=== PATIENT | male | born 2005 | race Caucasian/White ===

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

== ENCOUNTER 2024-04-07 12:01 | Emergency (ER) | payer SELFPAY ==
[2024-04-07 12:09] VITALS: BP 142/77; PULSE 94; RESP 28; TEMP 39.4; O2SAT 100
[2024-04-07 12:22] VITALS: TEMP 39.4
[2024-04-07] MEDS: IBUPROFEN 600 MG TABLET PO (12:22)
--- NOTE | 2024-04-07 12:56 | ED.GENADULT ---
HPI - General Adult General Chief complaint: Nausea/Vomiting/Diarrhea Stated complaint: nausea/diarrhea/headache Time Seen by Provider: 04/07/24 12:50 Source: patient, RN notes reviewed and old records reviewed Mode of arrival: ambulatory Limitations: no limitations History of Present Illness HPI narrative: 19 year old male who presents to [facility] care with complaints of fever,nausea with vomiting and diarrhea for past 3 days. Patient reports that he has not had any vomiting today did take medication for nausea. Patient reports fevers chill and body aches presents to clinic with 103F fever. Patient reports no abdominal pain, ear pain or sore throat or any acute cough or any nasal congestion.Patient was treated with Ibuprofen while in clinic for 103F temperature. MD complaint: fever, chills, nausea,vomiting and diarrhea Onset (ago): day(s) (3) Severity: moderate Treatments prior to arrival: other (Zofran) Related Data Home Medications ?Medication ?Instructions ?Recorded ?Confirmed ?Last Taken ?Type epinephrine 0.1 mg/0.1 mL subcut PRN Allergic Reaction 05/25/19 Unknown History injection, auto-injector Allergies Allergy/AdvReac Type Severity Reaction Status Date / Time amoxicillin Allergy Unknown Unknown Verified 04/07/24 12:18 bee venom protein (honey Allergy Anaphylactic Verified 04/07/24 12:13 bee) (bees) Shock Review of Systems Review of Systems: CONSTITUTIONAL: Reports fever, chills, or sweats. EYES: Denies visual changes, redness, or discharge. ENT: Denies rhinorrhea, congestion, sore throat, or otalgia. CARDIOVASCULAR: Denies chest pain, palpitations, or edema. RESPIRATORY: Denies cough or dyspnea. GASTROINTESTINAL: Denies abdominal pain, positive nausea, vomiting, and diarrhea. GENITOURINARY: Denies dysuria or hematuria. SKIN: Denies rash or itching. MUSCULOSKELETAL: Denies back pain, joint pain,positive for body aches NEUROLOGIC: Denies headache, numbness, or weakness. PSYCHIATRIC: Denies anxiety or depression. All systems reviewed & are unremarkable except as noted in HPI and below PMFSH Past Medical History Medical History (Updated 04/09/24 @ 12:29 by Kenyatta Fried NP) Strep pharyngitis Social History Social History (Updated 04/09/24 @ 12:30 by Kenyatta Fried NP) Smoking status: Current every day smoker Tobacco type: e-cigarettes/vaping Alcohol intake: current Alcohol use details: rare Substance use type: does not use Gender identity (if verbalized by the patient): Male Comments At time of signature, agree with nursing past medical, surgical, social and family history. There is no relevant family history pertinent to the presenting complaint Exam Narrative: GENERAL:ill-appearing, well-nourished, and in no acute distress. HEAD: Normocephalic, atraumatic. EYES: PERRLA and EOMI. ENT: Nares clear, no rhinorrhea or epistaxis. Mucous membranes moist.TM's normal with throat pink with no swelling NECK: Supple.no lymphadenopathy CHEST: Clear to auscultation. No respiratory distress.SAO2 100% on room air HEART: Regular rate and rhythm. No murmur heard. Normal peripheral pulses. ABDOMEN: Soft, nontender, no McBurney point tenderness,nondistended, normal active bowel sounds.positive for nausea vomiting and diarrhea EXTREMITIES: Normal range of motion. No edema. SKIN: Warm, dry, no rash. NEURO: No focal deficits. Alert and oriented x3. Course Course Emergency Course: Patient is aware of diagnosis, understands and agrees to treatment plan.? Anticipatory guidance given.? Patient agrees to follow-up as directed and is aware of reasons to seek care at the emergency department. Portions of this record may have been created with voice recognition software Level of Care: Express Care Visit Vital Signs Vital signs: Vital Signs Temperature 39.4 C H 04/07/24 12:09 Pulse Rate 94 04/07/24 12:09 Respiratory Rate 28 H 04/07/24 12:09 Blood Pressure 142/77 H 04/07/24 12:09 Pulse Oximetry 100 04/07/24 12:09 Oxygen Delivery Room Air 04/07/24 12:09 Temperature 39.1 C H 04/07/24 13:01 Pulse Rate 94 04/07/24 12:09 Respiratory Rate 28 H 04/07/24 12:09 Blood Pressure 142/77 H 04/07/24 12:09 Pulse Oximetry 100 04/07/24 12:09 Oxygen Delivery Room Air 04/07/24 12:09 Reviewed Medical Decision Making MDM Narrative Medical decision making narrative: Exam findings and imaging show no acute concerns or changes; patient is non-toxic appearing and is in no distress.? Patient is appropriate for outpatient treatment and follow-up Differential Diagnosis Differential Diagnosis: URI, viral syndrome Influenza, COVID, gastroenteritis Medical Records Medical records reviewed: Yes I reviewed the external patient's medical records. Vital Signs Vital Signs: Vital Signs Temperature 39.4 C H 04/07/24 12:09 Pulse Rate 94 04/07/24 12:09 Respiratory Rate 28 H 04/07/24 12:09 Blood Pressure 142/77 H 04/07/24 12:09 Pulse Oximetry 100 04/07/24 12:09 Oxygen Delivery Room Air 04/07/24 12:09 Temperature 39.1 C H 04/07/24 13:01 Pulse Rate 94 04/07/24 12:09 Respiratory Rate 28 H 04/07/24 12:09 Blood Pressure 142/77 H 04/07/24 12:09 Pulse Oximetry 100 04/07/24 12:09 Oxygen Delivery Room Air 04/07/24 12:09 reviewed Lab Data Lab results reviewed: Yes I reviewed the patient's lab results. Lab results narrative: Influenza A positive, Influenza B negative, COVID antigen negative Labs: Lab Results 04/07/24 Range/Units 12:14 POC Influenza A Ag Positive (Negative) POC Influenza B Ag Negative (Negative) POC SARS CoV-2 Ag Negative (Negative) reviewed Critical Care Time Critical Care Time Critical Care Time: No Discharge Plan Discharge Clinical Impression: Influenza A Patient Disposition: Home, Self-Care Condition: Stable Instructions: Antibiotic Form, Influenza (ED) Additional Instructions: Clear liquids for the next 8-10 hours, then advance to a bland diet as tolerated A bland diet can consist of--BRAT diet which is bananas, rice, applesauce, and toast Avoid fried, greasy, fatty, fried foods Avoid caffeine, nicotine, and alcohol Return to your regular diet in the next 3-4 days Medication as directed for nausea and vomiting Sometimes ibuprofen/Aleve can cause increased stomach upset please treat your fevers [id number] Imodium if develop diarrhea Follow-up with her PCP if continued problems or uncontrolled pain If your symptoms persist, change or worsen significantly before you can contact your personal physician then please, without delay, go to the emergency department for further evaluation. Follow-up with PCP in 7-10 days or sooner if needed Follow up with PCP soon in regards to your blood pressure which is elevated above threshold for referral. Blood pressure above 120/80 may indicate pre-hypertension. Patient Language: Faroese Prescriptions: No Action epinephrine 0.1 mg/0.1 mL Auto-Injector subcut PRN (Reason: Allergic Reaction) Follow-up/Referrals: PHYSICIAN,WAXER OPERATOR [Primary Care Provider] - Time of Disposition: 13:19 Quality [place] Coma Scale Eyes: Open Verbal: Oriented and Alert Motor: Follows Commands Drew Coma Total Score: 15
[2024-04-07 13:01] VITALS: TEMP 39.1
[2024-04-07 13:12] LABS: EDCOVIDSCREEN Negative (Negative); EDINFLUASCREEN Positive (Negative); EDINFLUBSCREEN Negative (Negative)
== END 2024-04-07 13:25 | disposition home or self-care (01) ==
PROVIDERS: Emergency Provider Registered Nurse
DX: J10.1 Influenza due to other identified influenza virus with other respiratory manifestations (principal); Z20.822 Contact with and (suspected) exposure to COVID-19; F17.290 Nicotine dependence, other tobacco product, uncomplicated
CPT/HCPCS: 87426; 87804; 99212; A9270; G0463

== ENCOUNTER 2025-03-07 17:33 | Emergency (ER) | payer BC, SELFPAY ==
--- OUTSIDE RECORDS SUMMARY | 2025-03-07 17:36 | XMS_ITS | Clinical Summary ---
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 Active Dexmethylphenida te HCl 20 MG CAPSULE SR 24 HR Take 20 mg by mouth daily. Active Encounters Date Type Department Care Team Description 12/13/2024 12:59 PM CDT - 12/13/2024 2:56 PM CDT Emergency [facility] [address] [place] [address] Anu Jones APRN, RANDY Laceration of finger Discharge Disposition: Discharged to home or Selfcare 12/13/2024 Travel from Last 3 Months Immunizations Immunization Administration Dates Next Due Td Vaccine (preservative free) 12/13/2024 Social History Tobacco Use Types Packs/Day Years Used Date Smoking Tobacco: Every Day Smokeless Tobacco: Never Comments:2/3 a day Sex and Gender Information Value Date Recorded Sex Assigned at Not on file Legal Sex Male 12:40 AM CDT Gender Identity Not on file Sexual Orientation Not on file Last Filed Vital Signs Vital Sign Reading Time Taken Comments Blood Pressure 137/73 12/13/2024 2:48 PM CDT Pulse 58 12/13/2024 2:48 PM CDT Temperature 36.8 C (98.2 F) 12/13/2024 12:57 PM CDT Respiratory Rate 16 12/13/2024 2:48 PM CDT Oxygen Saturation 100% 12/13/2024 2:48 PM CDT Inhaled Oxygen Concentration - - Weight 65.8 kg (145 lb) 12/13/2024 12:57 PM CDT Height 182.9 cm (6') 12/13/2024 12:57 PM CDT Body Mass Index 19.67 12/13/2024 12:57 PM CDT Plan of Treatment Health Maintenance Due Date Last Done Comments Hepatitis C Virus (HCV) Screening 2003 Meningococcal B Immunization (1 of 2 - Standard) 2019 Pneumococcal Immunization Combined (1 of 2 - PCV) 2022 01/17/2005, 2003, 2003, Additional history exists Influenza Immunization (#1) 12/12/202401/12, 05/25/2013, 02/03/2012, Additional history exists SARS-COV-2 Immunization ( season) 2024 Respiratory Syncytial Virus (RSV) Immunization (Adult) (1 - 1-dose 75+ series) 2078 Varicella Immunization Completed 01/17/2005, 2004 Hepatitis B Immunization Completed 005, 2003, 2003 Hepatitis A Immunization Discontinued 07/20/2006, 11/2004 Measles Mumps Rubella (MMR) Immunization Discontinued 12/14/2007, 01/17/2005 Polio (IPV) Immunization Discontinued 009, 2003, 2003, Additional history exists TdaP Immunization Completed 05/25/2013 Meningococcal Immunization (ACWY) Aged Out 09/26/2014 No longer eligible based on patient's age to complete this topic Human Papillomavirus (HPV) Immunization Completed 08/14/2016, 04/15/2016, 02/12/2016 DTaP/Tdap/Td Immunization Discontinued 2024, 05/25/2013, 11/22/2008, Additional history exists Rotavirus Immunization Aged Out No lo nger eligible based on patient's age to complete this topic Procedures Procedure Name Priority Date/Time Associated Diagnosis Comments LACERATION REPAIR Routine 12/13/2024 2:2 1 PM CDT LACERATION REPAIR Routine 12/13/2024 2:2 1 PM CDT from Last 3 Months Results * Laceration Repair (12/13/2024 2:21 PM CDT) Rashad Puente MD - 12/13/2024 2:21 PM CDT Rashad Hannon MD 12/13/2024 5:57 PM Laceration Repair Performed by: Anu Jones APRN, CNP Authorized by: Anu Jones APRN, CNP [place] protocol: Patient identity confirmed: Verbally with patient Anesthesia: Anesthesia method: None Laceration details: Location: Finger Finger location: R ring finger Length (cm): 0.3 Exploration: Hemostasis achieved with: Direct pressure Treatment: Area cleansed with: Shur-Clens Amount of cleaning: Standard Skin repair: Repair method: Tissue adhesive us Anu Jones APRN, CNP PROCEDURE/MINOR KOENIG RGICAL ORDERABLES Final Result * Laceration Repair (12/13/2024 2:21 PM CDT) Rashad Puente MD - 12/13/2024 2:21 PM CDT Rashad Hannon MD 12/13/2024 5:57 PM Laceration Repair Performed by: Anu Jones APRN, CNP Authorized by: Anu Jones APRN, CNP Anesthesia: Anesthesia method: None Laceration details: Location: Finger Finger location: R small finger Length (cm): 0.5 Exploration: Hemostasis achieved with: Direct pressure Contaminated: no Treatment: Area cleansed with: Shur-Clens Amount of cleaning: Standard Skin repair: Repair method: Tissue adhesive Repair type: Repair type: Simple Post-procedure details: Dressing: Splint for protection us Anu Jones APRN, CNP PROCEDURE/MINOR KOENIG RGICAL ORDERABLES Final Result from Last 3 Months Insurance MEDICAID BLUE CROSS [place] Care Teams Rail Car Repairer Relationship Specialty Start Date End Date Provider, None [place] PCP - General 04/16/23
--- OUTSIDE RECORDS SUMMARY | 2025-03-07 17:36 | XMS_ITS | Clinical Summary ---
Author Organization [facility] Address [address] [place] [address] Care Team Providers Care Payroll Manager Name Role Phone No, Physician Primary Care Provider [phone] Allergies Active Allergy Reactions Criticality Noted Date Comments Amoxicillin-Pot Clavulanate Venom-Honey Bee Hives Medium 02/19/2020 Medications dexmethylphenidat e XR (FOCALIN XR) 20 mg 24 hr capsuleIndication s:Attention-Defic it Hyperactivity Disorder TK 1 C PO Q MORNING 0 8 Active dextroamphetamine -amphetamine XR (ADDERALL XR) 10 mg 24 hr capsule Take 10 mg by mouth every morning. Active escitalopram (LEXAPRO) 10 mg tablet Take 10 mg by mouth daily. Active ibuprofen (ADVIL,MOTRIN) 400 mg tabletIndications :Pain Take 1 tablet (400 mg total) by mouth every 6 (six) hours as needed for pain. 30 tablet 9 Active Additional Information Patient not taking.Reported on 02/19/2020 ibuprofen (ADVIL,MOTRIN) 400 mg tablet Take 1 tablet (400 mg total) by mouth every 6 (six) hours as needed for pain Take with food. 20 tablet 9 Active Additional Information Patient not taking.Reported on 02/19/2020 ibuprofen (ADVIL,MOTRIN) 600 mg tablet Take 1 tablet (600 mg total) by mouth 3 (three) times a day Take with food. 20 tablet 9 Active Additional Information Patient not taking.Reported on 02/19/2020 naproxen (NAPROSYN) 500 mg tablet Take 1 tablet (500 mg total) by mouth 2 (two) times a day with meals 30 tablet 5 Active Active Problems Problem Noted Date Diagnosed Date Right foot sprain, initial encounter 11/30/2018 Sprain of deltoid ligament of right ankle 2018 Dentalgia 08/13/2018 Dental infection 08/13/2018 Facial cellulitis 08/13/2018 Right maxillary sinusitis 08/13/2018 Surgical History Surgery Date Site/Laterality Comments NO PAST SURGERIES Medical History Medical History Date Comments ADHD (attention deficit hyperactivity disorder) Asthma Anxiety Depression (emotion) Family History Medical History Relation Name Comments COPD Mother Diabetes Mother Heart disease Mother Hypertension Mother Relation Name Status Comments Father Mother Alive Social History Tobacco Use Types Packs/Day Years Used Date Smoking Tobacco: Every Day Smokeless Tobacco: Never Personal Safety Answer Date Recorded Have you ever been in or are you currently in a harmful physical or emotional relationship or is someone making you feel afraid or unsafe? 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 Gender Identity Not on file Sexual Orientation Not on file Last Filed Vital Signs Vital Sign Reading Time Taken Comments Blood Pressure 137/87 08/07/2024 7:54 PM CDT Pulse 68 08/07/2024 7:54 PM CDT Temperature 36.6 C (97.9 F) 08/07/2024 7:54 PM CDT Respiratory Rate 16 08/07/2024 7:54 PM CDT Oxygen Saturation 100% 08/07/2024 7:54 PM CDT Inhaled Oxygen Concentration - - Weight 65.8 kg (145 lb) 08/07/2024 7:54 PM CDT Height 182.9 cm (6') 08/07/2024 7:54 PM CDT Body Mass Index 19.67 08/07/2024 7:54 PM CDT Plan of Treatment Health Maintenance Due Date Last Done Comments Depression Screening 2003 Hepatitis C Screening 2003 Pneumococcal vaccine <65 (1 of 1 - PPSV23, PCV20, or PCV21) 2009 01/17/2005, 2003, 2003, Additional history exists Meningococcal B Vaccine (1 o f 2 - Standard) 2019 Regular Well Visit/Exam 18-64 2021 DTaP/Tdap/Td Vaccine (7 - Td or Tdap) 05/25/2023 05/25/2013, 11/22/2008, 01/17/2005, Additional history exists Influenza Vaccine (#1) 2024 6, 05/25/2013, 02/03/2012, Additional history exists Varicella Vaccines Completed 01/17/2005, 12/13/2004 Hepatitis B Screening Completed 02/18/2005 , 2003, 2003 HPV Vaccines Completed 08/14/2016, 06/2016, 02/12/2016 Insurance [facility] [employer] [facility] [employer] Care Teams Payroll Manager Relationship Specialty Start Date End Date No, Physician PCP - General 06/26/24
--- OUTSIDE RECORDS SUMMARY | 2025-03-07 17:36 | XMS_ITS | Clinical Summary ---
Author Organization [facility] Address [address] 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 This disclosure is being madepursuant to the Care Everywhere program and may not contain all information available regarding this patient. 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 Gender Identity Not on file Sexual Orientation Not on file Plan of Treatment Health Maintenance Due Date Last Done Comments HIV SCREENING 2018 HPV VACCINE (1 - Male 3-dose series) 2018 MENINGOCOCCAL (Group B) VACC INE SHARED DECISION-MAKING (1 of 2 - Standard) 2019 HEPATITIS C SCREENING 01/16/2021 DTAP/TDAP/TD VACCINES (1 - Tdap) 2022 HEPATITIS B VACCINE (1 of 3 - 19+ 3-dose series) 2022 DEPRESSION SCREENING 04/13/2024 COVID-19 VACCINE (1 - 2024-2 6 season) 2024 INFLUENZA VACCINE (#1) 2024 ZOSTER VACCINE (1 of 2) 2053 HIB VACCINE Aged Out No longer eligi ble based on patient's age to complete this topic MENINGOCOCCAL GROUPS A/C/Y/W VACCINE Aged Out No longer eligible b ased on patient's age to complete this topic PNEUMOCOCCAL VACCINE Aged Out No long er eligible based on patient's age to complete this topic Insurance [employer]
--- NOTE | 2025-03-07 17:38 | ED_ITS ---
HPI - Dental/Oral General Chief complaint: Dental/Oral Stated complaint: Tooth Pain Time Seen by Provider: 03/07/25 17:37 Source: patient Mode of arrival: ambulatory Limitations: no limitations History of Present Illness HPI Narrative: Tyler is a 20 year old male patient presenting to the clinic today with c/o dental pain x 1 month but worse the last couple of hours. He has taken tylenol for pain. No fever, chills, or bodyaches. Has seen the dentist in the past and his insurance will not cover the dental care he needs Related Data Home Medications ?Medication ?Instructions ?Recorded ?Confirmed ?Last Taken ?Type epinephrine 0.1 mg/0.1 mL subcut PRN Allergic Reaction 05/25/19 Unknown History injection, auto-injector Allergies Allergy/AdvReac Type Severity Reaction Status Date / Time amoxicillin Allergy Unknown Unknown Verified 03/07/25 17:42 bee venom protein (honey Allergy Anaphylactic Verified 03/07/25 17:42 bee) (bees) Shock Review of Systems Review of Systems: Pertinent positives per HPI. Patient denies any fever, chills, rash, headache, visual changes, dizziness, cough, shortness of breath, chest pain, palpitations, nausea, vomiting, diarrhea, constipation, abdominal pain, or any urinary issues. PMFSH Past Medical History Medical History Strep pharyngitis Social History Social History Smoking status: Current every day smoker Tobacco type: e-cigarettes/vaping Alcohol intake: current Alcohol use details: rare Substance use type: does not use Gender identity (if verbalized by the patient): Male Comments At the time of my signature, I reviewed and agree with the nursing past medical, surgical, social, and family history. There is no relevant family history pertinent to the patient complaint. Exam Narrative: General: Well-developed, well nourished, in no apparent distress Head: Normocephalic, atraumatic Eyes: Pupils equally round and reactive to light bilaterally, EOM intact, sclera and conjunctive clear, no discharge, lids normal Ears: TMs intact and clear, ear canals clear, no drainage, grossly hearing normal. Nose: Nares patent, no discharge, no inflammation, no sinus tenderness. Mouth: Oral pharynx without lesions or masses, poor dentition, MMM. Multiple dental decay/fractures-dental pain to the left upper and posterior molars with mild gingival swelling Neck: Supple, trachea midline, no enlargement of anterior or posterior cervical nodes, no thyroid masses or goiter palpable. Cardio: Regular rate and rhythm, s1 and s2 normal, no murmur appreciated. Resp: Clear to auscultation bilaterally, no rhonchi, rales, wheezing or rubs Course Course Emergency Course: Portions of this record may have been created with voice recognition software. Level of Care: Express Care Visit Vital Signs Vital signs: Vital Signs Temperature 37.0 C 03/07/25 17:40 Pulse Rate 56 L 03/07/25 17:40 Respiratory Rate 16 03/07/25 17:40 Blood Pressure 146/87 H 03/07/25 17:40 Pulse Oximetry 100 03/07/25 17:40 Oxygen Delivery Room Air 03/07/25 17:40 Temperature 37.0 C 03/07/25 17:40 Pulse Rate 56 L 03/07/25 17:40 Respiratory Rate 16 03/07/25 17:40 Blood Pressure 146/87 H 03/07/25 17:40 Pulse Oximetry 100 03/07/25 17:40 Oxygen Delivery Room Air 03/07/25 17:40 Vital signs reviewed MDM - Dental/Oral MDM Narrative Medical decision making narrative: At the time of visit patient is resting comfortably on the exam table. Patient appears to be nontoxic. C/o dental pain x 1 month but worse the last couple of hours. He has taken tylenol for pain. No fever, chills, or bodyaches. Has seen the dentist in the past and his insurance will not cover the dental care he needs. Multiple dental decay/fractures-dental pain to the left upper and posterior molars with mild gingival swelling Plan: I suspect patient has dental pain with dental decay mild inflammation of the gingiva. Will send in prescription for clindamycin as patient has allergies to amoxicillin. Supportive measures were discussed with the patient and they voiced understanding discharge instructions and agrees to treatment plan. Return precautions reviewed Differential Diagnosis Differential diagnosis: Likely gingival abscess, dental caries, toothache, dental abscess, fracture of tooth and aphthous ulcer Discharge Plan Discharge Clinical Impression: Toothache Patient Disposition: Home Condition: Stable Instructions: Antibiotic Form, Toothache (ED) Additional Instructions: Take medications as prescribed-clindamycin Increase fluids and stay well hydrated May take Tylenol/Motrin as needed for pain or fever May apply Orajel to the affected area to help alleviate pain May apply warm or cool compress to the affected area to help alleviate pain Follow-up with your dentist as soon as possible Patient Language: Turkmen Prescriptions: New clindamycin HCl [Cleocin HCl] 300 mg capsule 300 mg PO TID 10 Days Qty: 30 0RF No Action epinephrine 0.1 mg/0.1 mL Auto-Injector subcut PRN (Reason: Allergic Reaction) Follow-up/Referrals: PHYSICIAN,[employer] FIELD TECHNICIAN [Primary Care Provider, Internal Medicine] Time of Disposition: 17:47 Quality NIHSS Nursing Documentation ED NIHSS nursing documentation: reviewed/agree
[2025-03-07 17:40] VITALS: BP 146/87; PULSE 56; RESP 16; TEMP 37; O2SAT 100
== END 2025-03-07 17:51 | disposition home or self-care (01) ==
PROVIDERS: Emergency Provider Nurse Practitioner Family
DX: K08.89 Other specified disorders of teeth and supporting structures (principal); F17.290 Nicotine dependence, other tobacco product, uncomplicated
CPT/HCPCS: 99213; G0463